=== PATIENT | female | born 2000 | race Two or more races ===

== ENCOUNTER 2021-03-01 07:18 | Emergency (ER) | payer OTHER ==
[~2021-03-01] VITALS: Ht 170.2 cm; Wt 70.8 kg
[2021-03-01] MEDS ORDERED: ANUSOL-HC25 MG RECTAL (14:18)
== END 2021-03-01 14:58 ==
LOC: ER 07:18
DX: K62.5 Hemorrhage of anus and rectum (principal); R10.9 Unspecified abdominal pain; K64.8 Other hemorrhoids; Z03.818 Encounter for observation for suspected exposure to other biological agents ruled out
CPT/HCPCS: 74177; Q9965